=== PATIENT | male | born 1935 | race Caucasian/White ===

== ENCOUNTER 2016-08-08 21:26 | Inpatient (IN) | payer MEDICARE ==
[~2016-08-08] VITALS: Ht 170.2 cm; Wt 84.5 kg
[~2016-08-08 21:26] MED LIST: AMOXAPINE PO; BAYER CHEWABLE81 MG PO; CILOSTAZOL50 MG PO; COREG 3.1253.125 MG PO; CRESTOR20 MG PO; LASIX40 MG PO; LIPITOR40 MG PO; LISINOPRIL2.5 MG PO; MULTI-DAY VITAM1 TAB PO; NITROSTAT0.4 MG SL; PLAVIX75 MG PO; TENORMIN25 MG PO; TERAZOSIN HCL2 MG PO; ULTRAM50 MG PO; XANAX1 MG; XANAX1 MG PO
[2016-08-08 22:37] LABS: BASOPHILS 0.2 % (0.0-2.0); EOSINOPHILS 7.4 % (0-7); HEMATOCRIT 33.9 % (42.0-54.0); HEMOGLOBIN 11.4 g/dL (13.5-17.5); IMMATURE GRANULOCYTES 0.5 % (0-5); LYMPHOCYTES 25.3 % (15-50); MCH 31.6 pg (26.0-34.0); MCHC 33.6 g/dL (31.0-37.0); MCV 93.9 fL (80.0-100.0); MEAN PLATELET VOLUME 10.5 fL (7.4-10.4); MONOCYTES 9.8 % (2-11); NEUTROPHILS 56.8 % (40-80); PLATELET COUNT 106 10x3/uL (130-400); RBC 3.61 10x6/uL (4.20-6.10); RDW 15.6 % (11.5-14.5); WBC 8.5 10x3/uL (4.8-10.8)
[2016-08-08 22:48] LABS: ALBUMIN 3.3 g/dL (3.4-5.0); ALKALINE PHOSPHATASE 79 U/L (46-116); ALT (SGPT) 17 U/L (10-68); CALC OSMOLALITY 275 mosm/kg (275-300); CALCIUM 8.6 mg/dL (8.5-10.1); CARBON DIOXIDE 29.7 mmol/L (21.0-32.0); CHLORIDE - SERUM 100 mmol/L (98-107); CREATININE - SERUM 0.9 mg/dL (0.6-1.3); GLUCOSE 97 mg/dL (74-106); POTASSIUM - SERUM 4.1 mmol/L (3.5-5.1); PROTEIN - SERUM 6.2 g/dL (6.4-8.2); SODIUM 137 mmol/L (136-145); UREA NITROGEN 19 mg/dL (7-18); eGFR NON AFRICAN AMERICAN 86 mL/min (90-120)
[2016-08-08 22:57] LABS: CREATINE KINASE 58 UL (21-232); PRO BNP 1176 pg/mL (0-450)
[2016-08-09] VITALS (7 sets, daily range): BP systolic 121–145; BP diastolic 59–72; Ht 170.2 cm; Wt 84.5 kg
--- NOTE | 2016-08-09 08:07 | NUR ---
PATIENT LYING IN BED AWAKE. ALERT/ORIENT X4. DAUGHTER IN ROOM WITH PATIENT. SCDS' ON. CALL LIGHT WITHIN REACH. VOICES NO NEEDS. SALIN LOCK IN RIGHT FOREARM.
--- NOTE | 2016-08-09 10:20 | NUR ---
PRN XANAX GIVEN FOR ANXIEITY
[2016-08-09 10:39] LABS: BASOPHILS 0.1 % (0.0-2.0); EOSINOPHILS 0.1 % (0-7); HEMATOCRIT 34.3 % (42.0-54.0); HEMOGLOBIN 11.4 g/dL (13.5-17.5); IMMATURE GRANULOCYTES 0.4 % (0-5); LYMPHOCYTES 28.3 % (15-50); MCH 31.2 pg (26.0-34.0); MCHC 33.2 g/dL (31.0-37.0); MONOCYTES 4.1 % (2-11); PLATELET COUNT 115 10x3/uL (130-400); RBC 3.65 10x6/uL (4.20-6.10); RDW 15.3 % (11.5-14.5); WBC 7.5 10x3/uL (4.8-10.8)
--- NOTE | 2016-08-09 10:43 | NUR ---
DR TERESA INTO SEE PATIENT NEW ORDERS RECEIVED. TELEMRY ON.
--- NOTE | 2016-08-09 14:07 | NUR ---
PATIENT RESTING WELL. PATIENTS AT BEDSIDE. OXYGEN ON AT 2L PER N/C. CRACKLES HERD IN BILATERAL LUNGS.
--- NOTE | 2016-08-09 14:56 | NUR ---
PATIENT IN BED WITH EYES CLOSED RESTING QUIETLY. NO COMPLAINTS OR SIGNS OF DISTRESS. FAMILY AT BEDSIDE. CALL LIGHT WITHIN REACH.
--- NOTE | 2016-08-09 16:15 | NUR ---
PATIENT WORKING WITH PHYSICAL THERAPIST. PATIENT HAS A STEADY GAIT. UP WALKING AROUND IN ROOM.
[2016-08-10 05:03] VITALS: BP 118/58
[2016-08-10 05:40] LABS: BASOPHILS 0.1 % (0.0-2.0); EOSINOPHILS 0 % (0-7); HEMATOCRIT 31.8 % (42.0-54.0); HEMOGLOBIN 10.7 g/dL (13.5-17.5); IMMATURE GRANULOCYTES 0.3 % (0-5); LYMPHOCYTES 21.2 % (15-50); MCH 31.4 pg (26.0-34.0); MCHC 33.6 g/dL (31.0-37.0); MCV 93.3 fL (80.0-100.0); MEAN PLATELET VOLUME 10.6 fL (7.4-10.4); MONOCYTES 8.1 % (2-11); NEUTROPHILS 70.3 % (40-80); PLATELET COUNT 117 10x3/uL (130-400); RBC 3.41 10x6/uL (4.20-6.10); RDW 15.5 % (11.5-14.5)
[2016-08-10 05:49] LABS: WBC 11.4 10x3/uL (4.8-10.8)
[2016-08-10 05:57] LABS: ANION GAP 11.6 mmol/L (8-16); BILIRUBIN - TOTAL 0.6 mg/dL (0.2-1.3); CALCIUM 8.6 mg/dL (8.5-10.1); CREATININE - SERUM 1.1 mg/dL (0.6-1.3); POTASSIUM - SERUM 3.6 mmol/L (3.5-5.1)
--- NOTE | 2016-08-10 07:20 | NUR ---
REPORT RECEIVED FROM BIOLOGY SPECIMEN TECHNICIAN NURSE. CALL LIGHT IN REACH.
[2016-08-10 08:32] VITALS: BP 105/46
--- NOTE | 2016-08-10 09:29 | NUR ---
ASSESSMENT COMPLETED. SCDs TO BLE. AM MEDS ADMINISTERED. IN ROOM. CALL LIGHT IN REACH. WILL CONTINUE WITH PLAN OF CARE.
--- NOTE | 2016-08-10 10:42 | NUR ---
Patient Name: PEARL BLOUNT Admission Status: ER Accout number: [id number] Admission Date: 08-08-2016 : 1935 Admission Diagnosis: Attending: SANDRA Current LOS: 2 Anticipated DC Date: 08-12-2016 Planned Disposition: Home with Home Health Primary Insurance: [employer] CHOICE PPO [facility] Discharge Planning Comments: CM SPOKE WITH PATIENT AND (TANO) REGARDING D/C NEEDS AND PLANS. PATIENT STATED HE LIVES WITH HIS (TANO) AND SHE WILL DRIVE HIM HOME AT DISCHARGE. PATIENT STATED HE IS INDEPENDENT WITH HIS CARE AND HAS A CANE AT HOME IF NEEDED. PATIENTS PCP IS DR. GOLDMAN AND USES [facility] [address]. PATIENT SIGNED THE RE[facility]AH FORM FOR [facility]. CM WILL CONTINUE TO FOLLOW PATIENT WITH D/C NEEDS AND PLANS. PCP DR. SUSI CAIN [address]- [phone] TANO () [phone] BRITT (DAUGHTER) [phone] General Claims Agent: Roxanne Boucher Is the patient Alert and Oriented? Yes 0 * How many steps to enter\exit or inside your home? 0 0 * PCP DR. GOLDMAN 0 * Pharmacy [facility] [address] 0 * Preadmission Environment Home with Family 0 * ADLs Independent 0 * Equipment Cane 0 * List name and contact numbers for known caregivers / representatives who currently or will assist patient after discharge: TANO () [phone] BRITT (DAUGHTER) [phone] 0 * Community resources currently utilized None 0 * Additional services required to return to the preadmission environment? Yes 0 * Can the patient safely return to the preadmission environment? Yes 0 * Has this patient been hospitalized within the prior 30 days at any hospital? No 0 Grand Total: 0
--- NOTE | 2016-08-10 11:10 | NUR ---
MD AND NURSE PRACTITIONER IN ROOM TO SEE PATIENT.
[2016-08-10] MEDS ORDERED: FLORAJEN3 CAPS460 MG PO (11:13)
[2016-08-10] MEDS ORDERED: TESSALON PERLE100 MG PO (11:13)
[2016-08-10] MEDS ORDERED: MUCINEX DM ER1 EAC1 PO (11:13)
[2016-08-10] MEDS ORDERED: LEVAQUIN750 MG PO (11:14)
[2016-08-10 11:30] VITALS: BP 105/47
--- NOTE | 2016-08-10 12:40 | NUR ---
STUDENT NURSE REMOVED IV WITH TIP INTACT.
--- NOTE | 2016-08-10 12:50 | NUR ---
CM REASSESSMENT NOTE: PATIENT IS DISCHARGING HOME TODAY WITH [facility]. PATIENT SIGNED THE REBEKAH FORM. PATIENTS IS DRIVING HIM HOME AT DISCHARGE. PATIENT DENIED ANY OTHER NEEDS AT THIS TIME. [facility] HAS BEEN NOTIFIED OF DISCHARGE.
--- NOTE | 2016-08-10 13:02 | NUR ---
AWAKE AND ALERT. ORIENTED X3. SITTING UP IN CHIAR AT BEDSIDE. NO C/O PAIN OR DISCOMFORT. LUNGS ARE CLEAR EXCEPT IN LOWER LOBES WHICH HAVE SOME FAINT CRACKLES. REPORTS OCCASSIONAL DRY COUGH. FAMILY IN ROOM. DENIES NEEDS. WAITING ON RIDE FOR D/C HOME.
--- NOTE | 2016-08-10 13:53 | NUR ---
DC INSTRUCTIONS EXPLAINED TO PATIENT AND FAMILY PER ELLY HUBER.
--- NOTE | 2016-08-10 13:56 | NUR ---
DC'D TO VEHICLE VIA WC WITH FAMILY.
--- NOTE | 2016-08-11 13:59 | CN ---
PATIENT NAME:PEARL BLOUNT MEDICAL RECORD: [id number] : 37 LOCATION:D.MS [id number] ADMIT DATE: 08/08/16 ACCOUNT: [id number] CONSULTING PHYSICIAN: FRANCISCA TERESA MD REFERRING PHYSICIAN: SHANNA HU MD DATE OF CONSULTATION: 08/09/2016 Cardiology Consultation DIAGNOSIS: Shortness of breath, dyspnea on exertion. HISTORY OF PRESENT ILLNESS: This is a gentleman known to us with a past history of coronary artery disease, status post coronary artery bypass graft surgery. Last cardiac catheterization was December 2015 revealing wide patency of his grafts. He had no chest pain, no chest discomfort. He was taking an [id number] decongestant and feels that he had a reaction to this with worsening shortness of breath. He recently had an echo 1 week ago in our office, this revealed a normal ejection fraction of 55%, mild aortic stenosis with a valve area calculated at 1.5 cm-squared, no significant other valvular heart disease. PHYSICAL EXAMINATION: GENERAL APPEARANCE: Well-nourished, well-developed, appears stated age. Level of distress, comfortable. PSYCHIATRIC: Mental status, alert, normal affect. Orientation, oriented to time, place and person. EYES: Lids and conjunctiva, noninjected. No discharge, no pallor. ENT: Lips, teeth, gums, normal dentition. Oropharynx, no cyanosis, no pallor. NECK: Carotid arteries, bilateral normal upstroke, no bruits, no thrills. JUGULAR VEINS: No jugular venous pressure or distention. CERVICAL LYMPH NODES: Nontender, nonenlarged. THYROID: Not enlarged. Nontender. No nodules. LUNGS: Respiratory effort, unlabored. CHEST: Normal curvature. No thoracic deformity. No chest wall tenderness. Percussion, resonant. Auscultation, clear. No wheezes, no rales, no rhonchi. CARDIOVASCULAR: Precordial exam, nondisplaced. No heaves or pericardial thrills. Rate and rhythm, regular. Heart sounds, normal S1, normal S2. No S3, no gallop, no rub. Systolic murmur, not heard. Diastolic murmur, not heard. EXTREMITIES: No cyanosis, no edema. Peripheral pulses, full and equal in all extremities, except as noted. No bruits appreciated. ABDOMEN: Soft, nondistended. Normal aorta. No bruit. Nontender. No masses. Liver, nontender, no hepatomegaly. Spleen, nontender, no splenomegaly. MUSCULOSKELETAL: No joint tenderness. No joint swelling. No erythema. NEUROLOGICAL: Normal gait, normal strength, normal tone. SKIN: Warm and dry. REVIEW OF SYSTEMS: The patient reports easy bruising but reports no swollen glands. The patient reports no fever, no night sweats, no significant weight gain, no significant weight loss. No significant exercise tolerance. The patient reports no dry eyes, no irritation, no vision change. Patient reports no difficulty hearing and no ear pain. Patient reports no frequent nose bleeds or nose and sinus problems. Patient reports on arm pain on exertion. No shortness of breath while lying down. No history of heart murmur. Patient reports no cough, no wheezing or coughing up blood. Patient reports no abdominal pain, no vomiting. Normal appetite. No diarrhea and not vomiting blood. No nausea and no constipation. Patient reports no incontinence. No CONSULT REPORT [id number] PEARL BLOUNT difficulty urinating. No hematuria. No increased frequency. Patient reports no muscle aches. No weakness, no arthralgias, no back pain. No swelling of the extremities. Patient reports no abnormal mole, no jaundice, no rashes. Reports no loss of consciousness. No weakness and no numbness. No seizures, dizziness, or headaches. The patient reports no depression, no sleep disturbance, feeling safe in a relationship and no alcohol abuse. Patient reports on fatigue. Reports no runny nose or sinus pressure. No itching, no hives, and no frequent sneezing. OVERALL IMPRESSION: This is not congestive heart failure with a normal ejection fraction, mild valvular heart disease and no anginal symptomatology with a normal troponin and no EKG changes. At this time, no other cardiac workup or treatment is necessary. TRANSINT:[id number] Voice Confirmation ID: [id number] DOCUMENT ID: [id number] FRANCISCA TERESA MD at 1359 CC: [id number] DICTATION DATE: 08/09/1652 LITIGATION LEGAL SECRETARY: 08/09/16 0911 DIS IN 08/10/16 [place] [address]
== END 2016-08-10 13:56 | disposition home health service (06) | DRG 291 ==
LOC: D.ER 21:26 → D.MS 23:52
PROVIDERS: Emergency Medicine Emergency Medical Services; ADMIT Emergency Medicine
DX: I13.0 Hypertensive heart and chronic kidney disease with heart failure and stage 1 through stage 4 chronic kidney disease, or unspecified chronic kidney disease (principal); J18.9 Pneumonia, unspecified organism; I50.43 Acute on chronic combined systolic (congestive) and diastolic (congestive) heart failure; N18.2 Chronic kidney disease, stage 2 (mild); I25.10 Atherosclerotic heart disease of native coronary artery without angina pectoris; F32.9 Major depressive disorder, single episode, unspecified; I73.9 Peripheral vascular disease, unspecified; Z95.0 Presence of cardiac pacemaker

== ENCOUNTER → 2016-10-10 12:31 | Outpatient (CLI) | payer MEDICARE ==
[~2016-10-10 12:31] MED LIST changes: +BUMEX 1 MG TAB1 MG IV; +BUMEX 1 MG TAB1 MG PO; +CETIRIZINE HCL5 M1 PO; +COZAAR25 MG PO; +FLORAJEN3 CAPS460 MG PO; +K-DUR20 MEQ PO; +LEVAQUIN750 MG PO; +MUCINEX DM ER1 EAC1 PO; +NORVASC10 MG PO; +ROBAXIN500 MG PO; +TESSALON PERLE100 MG PO
== END | disposition home or self-care (01) ==
LOC: D.US 12:31
DX: I73.9 Peripheral vascular disease, unspecified (principal)

== ENCOUNTER 2016-11-27 08:23 | Inpatient (IN) | payer MEDICARE ==
[~2016-11-27] VITALS: Ht 170.2 cm; Wt 89.6 kg
[~2016-11-27 08:23] MED LIST changes: -BUMEX 1 MG TAB1 MG IV; -BUMEX 1 MG TAB1 MG PO; -CETIRIZINE HCL5 M1 PO; -COZAAR25 MG PO; -K-DUR20 MEQ PO; -NORVASC10 MG PO; -ROBAXIN500 MG PO
[2016-11-27 09:07] LABS: BASOPHILS 0.3 % (0-2); EOSINOPHILS 7.7 % (0-7); HEMATOCRIT 32.6 % (42.0-54.0); HEMOGLOBIN 11.1 g/dL (13.5-17.5); IMMATURE GRANULOCYTES 0.3 % (0-5); LYMPHOCYTES 38.2 % (15-50); MCH 31.4 pg (26.0-34.0); MCV 92.4 fL (80.0-100.0); MEAN PLATELET VOLUME 10.7 fL (7.4-10.4); MONOCYTES 10.8 % (2-11); NEUTROPHILS 42.7 % (40-80); PLATELET COUNT 139 10x3/uL (130-400); RBC 3.53 10x6/uL (4.20-6.10); RDW 15.7 % (11.5-14.5); WBC 11.4 10x3/uL (4.8-10.8)
[2016-11-27 09:18] LABS: ALBUMIN 3.6 g/dL (3.4-5.0); ALKALINE PHOSPHATASE 68 U/L (46-116); ALT (SGPT) 19 U/L (10-68); BILIRUBIN - TOTAL 1.02 mg/dL (0.2-1.3); CALC OSMOLALITY 274 mosm/kg (275-300); CALCIUM 8.6 mg/dL (8.5-10.1); CARBON DIOXIDE 26.8 mmol/L (21.0-32.0); CHLORIDE - SERUM 96 mmol/L (98-107); CREATININE - SERUM 1.2 mg/dL (0.6-1.3); POTASSIUM - SERUM 4.2 mmol/L (3.5-5.1); PROTEIN - SERUM 6.1 g/dL (6.4-8.2); SODIUM 132 mmol/L (136-145); UREA NITROGEN 38 mg/dL (7-18); eGFR NON AFRICAN AMERICAN 62 mL/min (90-120)
[2016-11-27 09:22] LABS: GLUCOSE 120 mg/dL (74-106)
[2016-11-27 09:29] LABS: CKMB 1.9 U/L (0.0-3.6); PRO BNP 2027 pg/mL (0-450)
[2016-11-27 09:30] LABS: TROPONIN-I < 0.017 ng/mL (0.000-0.060)
[2016-11-27 12:14] VITALS: BP 129/59; BMI 30.4
[2016-11-27 13:20] VITALS: BP 124/59
[2016-11-27 17:16] VITALS: BP 120/54
[2016-11-27 20:34] VITALS: BP 97/52
[2016-11-27 23:34] VITALS: BP 120/54
[2016-11-28 04:24] VITALS: BP 114/49
[2016-11-28 06:18] LABS: BASOPHILS 0.4 % (0-2); EOSINOPHILS 5.8 % (0-7); HEMATOCRIT 34.8 % (42.0-54.0); HEMOGLOBIN 11.8 g/dL (13.5-17.5); IMMATURE GRANULOCYTES 0.6 % (0-5); LYMPHOCYTES 40.7 % (15-50); MCH 31.8 pg (26.0-34.0); MCHC 33.9 g/dL (31.0-37.0); MCV 93.8 fL (80.0-100.0); MEAN PLATELET VOLUME 11.2 fL (7.4-10.4); MONOCYTES 11.9 % (2-11); NEUTROPHILS 40.6 % (40-80); PLATELET COUNT 165 10x3/uL (130-400); RBC 3.71 10x6/uL (4.20-6.10); WBC 13.4 10x3/uL (4.8-10.8)
[2016-11-28 06:53] LABS: ANION GAP 11.6 mmol/L (8-16); CARBON DIOXIDE 31.4 mmol/L (21.0-32.0); CREATININE - SERUM 1.2 mg/dL (0.6-1.3)
[2016-11-28 08:13] VITALS: BP 123/58
[2016-11-28 08:58] VITALS: Ht 170.2 cm; Wt 89.6 kg
[2016-11-28] MEDS ORDERED: COZAAR25 MG PO ×2 (12:02→12:05)
[2016-11-28 13:24] VITALS: BP 113/49
--- NOTE | 2016-11-29 13:39 | EC ---
PATIENT:PEARL BLOUNT DATE OF SERVICE: 11/27/16 SEX: M MEDICAL RECORD: [id number] DATE OF : [birth year] LOCATION:D.M2 D.212 AGE OF PATIENT: 81 ADMISSION DATE: 11/27/16 REFERRING PHYSICIAN: INTERPRETING PHYSICIAN: BRAVO FAM MD ECHOCARDIOGRAM REPORT ECHO CHARGES 4 ECHO COMPLETE CLINICAL DIAGNOSIS: CHF ECHOCARDIOGRAPHIC MEASUREMENTS (adult normal given) AC root (d.<3.7cm) 3.6 LV Septum d (<1.2 cm> 1.2 Valve Excursion 1.9 LV Septum (systole) 2.0 Left Atria (s.<4.0cm> 5.1 LVPW d(<1.2cm) 1.7 RV (d.<2.3cm) 2.9 LVPW (sytole) 2.2 LV diastole(<5.6CM) 6.5 MV E-F(>70mm/sec) LV systole 4.9 LVOT Diameter 1.8 MV exc.(>10mm) Est.ejection fraction (50-75%) Pericardial Effusion N DOPPLER: LVIT A E 222.0 LA RVSP 77.0 LVOT 133 AOP1/2T Asc. Ao 236 RVOT 84.0 RA PA 125 AV Gradient Peak 22.3 AV Mean 12.0 AV Area 1.4 MV Gradient Peak 21.0 MV Mean 4.8 MV Area 1.1 COMMENTS: Flag Maker: [facility] Coordinator:Nicol Brownlee TAPE# PACS DATE OF SERVICE: 11/27/2016 Adequate 2D echo, color flow and spectral Doppler, and M-mode. Borderline LVH. LV internal dimensions are normal. Wall motion is normal. EF is greater than or equal to 55%. Aortic valve sclerosis without stenosis by Doppler interrogation. The left atrium is dilated at 5.1 cm. Mitral valve is thickened, mitral annular calcification, moderate MR. Right-sided chamber is grossly normal, moderate TR. TRANSINT:[id number] Voice Confirmation ID: [id number] DOCUMENT ID: [id number] ECHOCARDIOGRAM REPORT [id number] PEARL BLOUNT 11/29/2016 Edited to correct date of service, dmm. BRAVO FAM MD at 1339 CC: [id number] DICTATION DATE: 11/28/1638 PARAMEDIC RN: 11/28/16 1105 DIS IN 11/28/16 [facility] [address] [facility]
--- NOTE | 2016-11-29 13:39 | CN ---
PATIENT NAME:PEARL BLOUNT MEDICAL RECORD: [id number] : 37 LOCATION:. D.2126 ADMIT DATE: 11/27/16 ACCOUNT: [id number] CONSULTING PHYSICIAN: BRAVO FAM MD REFERRING PHYSICIAN: CHRISTIANO MONDRAGON MD DATE OF CONSULTATION: 11/28/2016 HISTORY OF PRESENT ILLNESS: An 81-year-old gentleman with a known history of coronary artery disease, status post coronary artery bypass grafting. He has a history of preserved LV systolic function. Recently had a fem-pop, admitted with volume overload, reports he was not responding to his usual dose of diuretic. LV function is normal, was mildly hypoproteinemic. We are asked to see him concerning his cardiovascular status. PAST MEDICAL HISTORY: Includes: 1. History of hypertension. 2. Peripheral vascular disease. 3. Coronary artery disease as described above. 4. Dyslipidemia. MEDICATIONS: Typically include Plavix 75 daily, Hytrin 2 mg p.o. q.h.s., Lipitor 40 daily, Coreg 3.125 daily, lisinopril 2.5 daily, aspirin 81 daily, Lasix 40 p.r.n. SOCIAL HISTORY: , lives here in [place], does try to exercise, nonsmoker. REVIEW OF SYSTEMS: The patient reports easy bruising but reports no swollen glands. The patient reports no fever, no night sweats, no significant weight gain, no significant weight loss. No significant exercise tolerance. The patient reports no dry eyes, no irritation, no vision change. Patient reports no difficulty hearing and no ear pain. Patient reports no frequent nose bleeds or nose and sinus problems. Patient reports on arm pain on exertion. No shortness of breath while lying down. No history of heart murmur. Patient reports no cough, no wheezing or coughing up blood. Patient reports no abdominal pain, no vomiting. Normal appetite. No diarrhea and not vomiting blood. No nausea and no constipation. Patient reports no incontinence. No difficulty urinating. No hematuria. No increased frequency. Patient reports no muscle aches. No weakness, no arthralgias, no back pain. No swelling of the extremities. Patient reports no abnormal mole, no jaundice, no rashes. Reports no loss of consciousness. No weakness and no numbness. No seizures, dizziness, or headaches. The patient reports no depression, no sleep disturbance, feeling safe in a relationship and no alcohol abuse. Patient reports on fatigue. Reports no runny nose or sinus pressure. No itching, no hives, and no frequent sneezing. PHYSICAL EXAMINATION: GENERAL: Pleasant gentleman, in no acute distress, comfortable, appears stated age. VITAL SIGNS: BP 123/58, pulse 69 and regular. HEENT: Normocephalic, atraumatic. NECK: No bruits noted. HEART: Regular, II/ systolic ejection murmur. LUNGS: De La Cruz clear. ABDOMEN: Soft, nontender. CONSULT REPORT [id number] PEARL BLOUNT EXTREMITIES: Pulses 1+. There is no edema. NEUROLOGIC: Grossly intact. IMPRESSION: Volume overload secondary to surgery, responding excellent to Bumex. LV function remains normal. I agree with current management. TRANSINT:[id number] Voice Confirmation ID: [id number] DOCUMENT ID: [id number] BRAVO FAM MD at 1339 CC: [id number] DICTATION DATE: 11/28/16 1017 OIL WELL CABLE TOOL OPERATOR: 11/28/16 1150 DIS IN 11/28/16 [facility] [address] [place] [address]
== END 2016-11-28 14:20 | disposition home or self-care (01) | DRG 292 ==
LOC: D.ER 08:23 → D.M2 10:09
PROVIDERS: Emergency Medicine; ADMIT Family Medicine
DX: I11.0 Hypertensive heart disease with heart failure (principal); C95.90 Leukemia, unspecified not having achieved remission; I50.9 Heart failure, unspecified; I25.10 Atherosclerotic heart disease of native coronary artery without angina pectoris; I73.9 Peripheral vascular disease, unspecified; E78.5 Hyperlipidemia, unspecified; F41.9 Anxiety disorder, unspecified; F32.9 Major depressive disorder, single episode, unspecified; D63.8 Anemia in other chronic diseases classified elsewhere; Z95.1 Presence of aortocoronary bypass graft; Z95.0 Presence of cardiac pacemaker

== ENCOUNTER → 2016-12-01 14:17 | Outpatient (CLI) | payer MEDICARE ==
[2016-11-28 08:58] VITALS: BMI 30.9
[~2016-12-01 14:17] MED LIST changes: +BUMEX 1 MG TAB1 MG IV; +CETIRIZINE HCL5 M1 PO; +COZAAR25 MG PO; +K-DUR20 MEQ PO; +NORVASC10 MG PO; +ROBAXIN500 MG PO
== END | disposition home or self-care (01) ==
LOC: D.US 14:17
DX: I50.9 Heart failure, unspecified (principal); R33.9 Retention of urine, unspecified

== ENCOUNTER 2016-12-02 01:53 | Inpatient (IN) | payer MEDICARE ==
[~2016-12-02] VITALS: Ht 170.2 cm; Wt 85.6 kg
[~2016-12-02 01:53] MED LIST changes: -BUMEX 1 MG TAB1 MG IV; -CETIRIZINE HCL5 M1 PO; -K-DUR20 MEQ PO; -NORVASC10 MG PO; -ROBAXIN500 MG PO
[2016-12-02 02:29] LABS: BASOPHILS 0.4 % (0-2); EOSINOPHILS 8.5 % (0-7); HEMATOCRIT 32.6 % (42.0-54.0); HEMOGLOBIN 10.8 g/dL (13.5-17.5); IMMATURE GRANULOCYTES 0.3 % (0-5); LYMPHOCYTES 35.6 % (15-50); MCH 30.9 pg (26.0-34.0); MCHC 33.1 g/dL (31.0-37.0); MCV 93.1 fL (80.0-100.0); MEAN PLATELET VOLUME 10.4 fL (7.4-10.4); MONOCYTES 11.5 % (2-11); NEUTROPHILS 43.7 % (40-80); RDW 16.3 % (11.5-14.5); WBC 10.5 10x3/uL (4.8-10.8)
[2016-12-02 02:30] LABS: PLATELET COUNT 126 10x3/uL (130-400)
[2016-12-02 02:41] LABS: ALBUMIN 3.4 g/dL (3.4-5.0); ANION GAP 9.6 mmol/L (8-16); BILIRUBIN - TOTAL 1.03 mg/dL (0.2-1.3); CALCIUM 8.6 mg/dL (8.5-10.1); CARBON DIOXIDE 31.2 mmol/L (21.0-32.0); CREATININE - SERUM 1.1 mg/dL (0.6-1.3); POTASSIUM - SERUM 3.8 mmol/L (3.5-5.1); PROTEIN - SERUM 5.9 g/dL (6.4-8.2)
[2016-12-02 02:49] LABS: TROPONIN-I 0.02 ng/mL (0.000-0.060)
[2016-12-02] MEDS ORDERED: K-DUR20 MEQ PO (04:25)
[2016-12-02] MEDS ORDERED: BUMEX 1 MG TAB1 MG IV (04:28)
[2016-12-02] MEDS ORDERED: ULTRAM50 MG PO (04:30)
[2016-12-02] MEDS ORDERED: ROBAXIN500 MG PO (04:30)
--- NOTE | 2016-12-02 04:30 | NUR ---
REPORT CALL FROM DONNA IN ER, IV-RAC-SL, PT HAS PACEMAKER TO L.CHEST, [id number], VITAL ARE STABLE, 02-2L, 80MG LASIX GIVEN IN ER, .5 DIDLUID GIVEN IN ER X2, EDEMA TO BILATERAL LOWER LEGS, FAMILY AT BEDSIDE, BED IS LOW, SRX 2, CALL LIGHT IN REACH, URINAL GIVEN, PLACE ON FALL PERCAUTION, WILL CONTINUE TO MONITOR
[2016-12-02] MEDS ORDERED: CETIRIZINE HCL5 M1 PO (04:31)
[2016-12-02] MEDS ORDERED: NORVASC10 MG PO (04:31)
[2016-12-02] MEDS ORDERED: TERAZOSIN HCL2 MG PO (04:33)
[2016-12-02 05:40] VITALS: BP 117/52; BMI 31.4
--- NOTE | 2016-12-02 07:27 | NUR ---
AM ROUNDS - PT APPEARS TO BE SLEEPING WITH EQUAL AND NON LABORED BREATHS. AND DAUGHTER AT BEDSIDE. MONITOR SHOWS PACE, HR 60. O2 AT 2L VIA NC. RIGHT AC IV, SL. WILL CONTINUE TO MONITOR
[2016-12-02 08:04] VITALS: BP 100/43
--- NOTE | 2016-12-02 11:48 | NUR ---
PT UP IN CHAIR. WILL CONTINUE TO MONITOR
[2016-12-02 12:00] VITALS: BP 116/42
--- NOTE | 2016-12-02 12:44 | NUR ---
PT SITTING UP IN THE CHAIR WITH FAMILY MEMBERS AT BEDSIDE. LUNCH TRAYS ARE BEING PASSED. AWAITING ON HIS LUNCH. NO NEEDS AT THIS TIME. WILL CONTINUE TO MONITOR
[2016-12-02 14:14] VITALS: Ht 170.2 cm; Wt 85.6 kg
[2016-12-02 16:00] VITALS: BP 140/58
--- NOTE | 2016-12-02 17:07 | NUR ---
Patient Name: MARCELLO BLOUNT Admission Status: ER Accout number: [id number] Admission Date: 12-02-2016 : 1935 Admission Diagnosis: Attending: BRITTANY Current LOS: 1 Anticipated DC Date: Planned Disposition: Home with Home Health Primary Insurance: HU[employer] CHOICE PPO [facility] PLANNED EXTERNAL PROVIDER: [facility] Discharge Planning Comments: * Is the patient Alert and Oriented? Yes 0 * How many steps to enter\exit or inside your home? NONE 0 * PCP DR. GOLDMAN MAY BE CHANGING TO DR. MONDRAGON 0 * Pharmacy [facility] [address] 0 * Preadmission Environment Home with Family 0 * ADLs Independent 0 * Equipment Cane 0 * Other Equipment NO MEDICAL EQUIPMENT PROVIDER PREFERENCE 0 * List name and contact numbers for known caregivers / representatives who currently or will assist patient after discharge: TANO BLOUNT, SPOUSE, BRITT MAGAÑA, DTR, 0 * Community resources currently utilized Home Health 0 * Please name any agencies selected above. [facility] 0 * Additional services required to return to the preadmission environment? No 0 * Can the patient safely return to the preadmission environment? Yes 0 * Has this patient been hospitalized within the prior 30 days at any hospital? Yes 0 CM MET WITH PT IN ROOM TO DISCUSS DISCHARGE PLANNING AND NEEDS. PT REPORTS LIVING AT HOME INDEPENDENTLY AT [facility] WITH HIS SPOUSE. PT HAS A CANE WITH NO MEDICAL EQUIPMENT PROVIDER [facility]. CM DISCUSSED AVAILABILITY OF HOME HEALTH, REHAB SERVICES AND MEDICAL EQUIPMENT. PT DENIES DISCHARGE NEEDS EXCEPT FOR RESUMPTION OF [facility] AT DISCHARGE. FAMILY OR SPOUSE WILL PICK HIM UP FOR DISCHARGE HOME. CM SPOKE TO SHIVANI OF [facility] WHO VERIFIED PT IS ON HOLD FOR HOME HEALTH WHILE IN THE HOSPITAL TO RESUME AT DISCHARGE. FOR DISCHARGE HOME, NOTIFY [facility] AT [phone]. FAX DISCHARGE INFORMATION [phone]. Wind Farm Operations Manager: Marcello Montgomery
--- NOTE | 2016-12-02 19:30 | NUR ---
RECEIVED REPORT, PT SITTING IN CHAIR, HELP TO RAISE FEET AND PLACE PILLOW UNDER R. HIP, 02-2L, IV-RAC-SL, [id number], L.CHEST-PACEMAKER, BILATERAL BELOW KNEES- EDEMA, CALL LIGHT IN REACH, DAUGHTER AT BEDSIDE, WILL CONTINUE PLAN OF CARE
--- NOTE | 2016-12-02 20:29 | NUR ---
GAVE NIGHT TIME MEDS, PT HAS OWN 100MG ASENDIN TABLET, DAUGHTER WILL GIVE WHEN SHE GETS BACK,
[2016-12-02 20:56] VITALS: BP 139/52
--- NOTE | 2016-12-02 21:38 | NUR ---
PT ASK FOR NORCO, GAVE ORDER, DAUGHTER WAS BACK, ASK IF SHE GAVE 100MG ASENDIN, SHE SAID YES
[2016-12-03 00:42] VITALS: BP 97/40
--- NOTE | 2016-12-03 02:25 | NUR ---
PT RESTING WELL WITHOUT C/O OR DISTRESS NOTED. NO NEEDS VOICED. CALL LIGHTS WITHIN REACH. WILL CONT TO MONITOR.
--- NOTE | 2016-12-03 03:01 | NUR ---
ASSESSMENT COMPLETE. SEE FLOWSHEET, SLEEPING ON L.SIDE, BED IS LOW, SRX2, CALL LIGHT IN REACH, DAUGHTER AT BEDSIDE, WILL CONTINUE TO MONITOR
--- NOTE | 2016-12-03 05:38 | NUR ---
HELD LASIX AND BUMEX-BLOOD PRESSURE 105/42
[2016-12-03 05:39] LABS: BASOPHILS 0.2 % (0-2); HEMATOCRIT 30.7 % (42.0-54.0); IMMATURE GRANULOCYTES 0.2 % (0-5); LYMPHOCYTES 44.1 % (15-50); MCH 31.1 pg (26.0-34.0); MCHC 32.6 g/dL (31.0-37.0); MEAN PLATELET VOLUME 10.3 fL (7.4-10.4); MONOCYTES 10.4 % (2-11); NEUTROPHILS 35.1 % (40-80); PLATELET COUNT 118 10x3/uL (130-400); RBC 3.22 10x6/uL (4.20-6.10); RDW 16.2 % (11.5-14.5); WBC 8.7 10x3/uL (4.8-10.8)
[2016-12-03 05:41] LABS: MCV 95.3 fL (80.0-100.0)
[2016-12-03 06:00] LABS: ALBUMIN 3.2 g/dL (3.4-5.0); BILIRUBIN - TOTAL 0.83 mg/dL (0.2-1.3); CALCIUM 8.4 mg/dL (8.5-10.1); CARBON DIOXIDE 33.9 mmol/L (21.0-32.0); CREATININE - SERUM 1.2 mg/dL (0.6-1.3); POTASSIUM - SERUM 3.9 mmol/L (3.5-5.1); PROTEIN - SERUM 5.6 g/dL (6.4-8.2)
--- NOTE | 2016-12-03 06:55 | NUR ---
0654-AM ROUNDING DONE WITH PATIENT WATCHING TV, GLASSES ON. RIGHT AC SEEN WITH SALINE LOCK, ORANGE CAP IN PLACE. BILATERAL NON SKID SOCKS ON, BILATERAL LOWER SHINS ARE SLIGHTLY RED, 2-3+ EDEMA SEEN TO SHINS. DAUGHTER AT BEDSIDE. CALL LIGHT IN USE. ON HEART MONITOR SHOWING PACED, HR 76. WILL CPOC.
[2016-12-03 08:00] VITALS: BP 145/73
[2016-12-03 12:00] VITALS: BP 137/51
--- NOTE | 2016-12-03 12:11 | NUR ---
STILL SITTING UP IN CHAIR EATING LUNCH, AT BEDSIDE. DENIES NEEDS.
--- NOTE | 2016-12-03 12:27 | NUR ---
INFORMED PATIENT AND THAT WE ARE STOPPING THE LASIX PER ORDERS.
--- NOTE | 2016-12-03 15:16 | NUR ---
PATIENT IS WANTING SOMETHING FOR PAIN ON HIS LEGS. NOTHING IS ON THE EMAR. CALL PLACED TO CATRINA MACKEY TO SEE ABOUT HIS HOME MEDICATION OF ULTRAM. AWAITING CALL BACK.
--- NOTE | 2016-12-03 15:53 | NUR ---
NO CALL BACK FROM CATRINA MACKEY, CALL PLACED TO DR JIMENEZ.
--- NOTE | 2016-12-03 16:00 | NUR ---
RECEIVED CALL BACK FROM DR JIMENEZ. NEW ORDERS RECEIVED.
[2016-12-03 16:24] VITALS: BP 117/74
[2016-12-03 20:00] VITALS: BP 136/63
--- NOTE | 2016-12-03 20:10 | NUR ---
PT SITTING UP IN CHAIR WITH DAUGHTER AT BEDSIDE. HE IS ALERT/ORIENTED AND WATCHING TV. APPROPRIATE IN CONVERSATION. DENIES PAIN OR DISCOMFORT. STATES HE IS ACTUALLY FEELING BETTER. O2 @ 2L/NC WITH NONLABORED RESPIRATIONS.
--- NOTE | 2016-12-03 20:25 | NUR ---
REVIEWED PLAN OF CARE WITH PATIENT AND HE IS REQUESTING THAT HIS BUMEX BE RETIMED SO THAT HE IS NOT UP ALL NIGHT GOING TO THE BATHROOM. WILL DO THIS . PT ALSO WANTING PAIN AND ANXIETY MEDS GIVEN WHEN HE GETS HIS BEDTIME MEDS. DAUGHTER AT BEDSIDE. NO OTHER NEEDS. WILL MONITOR.
--- NOTE | 2016-12-03 22:46 | NUR ---
ALL HS MEDS GIVEN AND PT NOW GETTING INTO BED TO SLEEP. DAUGHTER STAYING AT BEDSIDE. CPOC.
[2016-12-04] VITALS: BP 101/42
--- NOTE | 2016-12-04 06:01 | NUR ---
AM MEDS GIVEN, WITH NEWLY TIMED BUMEX. DAUGHTER IN ROOM, ASSISTING PT WITH DRINKING COFFEE AND GETTING UP TO CHAIR.
[2016-12-04 06:11] LABS: BASOPHILS 0.2 % (0-2); EOSINOPHILS 11.2 % (0-7); HEMATOCRIT 30.7 % (42.0-54.0); HEMOGLOBIN 10.1 g/dL (13.5-17.5); IMMATURE GRANULOCYTES 0.2 % (0-5); LYMPHOCYTES 35.2 % (15-50); MCH 31.6 pg (26.0-34.0); MCHC 32.9 g/dL (31.0-37.0); MCV 95.9 fL (80.0-100.0); MONOCYTES 11.6 % (2-11); NEUTROPHILS 41.6 % (40-80); PLATELET COUNT 104 10x3/uL (130-400); RDW 16.2 % (11.5-14.5); WBC 8.4 10x3/uL (4.8-10.8)
[2016-12-04 06:47] LABS: ALBUMIN 3.2 g/dL (3.4-5.0); ALKALINE PHOSPHATASE 64 U/L (46-116); ALT (SGPT) 24 U/L (10-68); CALC OSMOLALITY 278 mosm/kg (275-300); CALCIUM 8.7 mg/dL (8.5-10.1); CARBON DIOXIDE 33.3 mmol/L (21.0-32.0); CHLORIDE - SERUM 100 mmol/L (98-107); GLUCOSE 105 mg/dL (74-106); POTASSIUM - SERUM 4.3 mmol/L (3.5-5.1); PROTEIN - SERUM 5.7 g/dL (6.4-8.2); SODIUM 137 mmol/L (136-145); UREA NITROGEN 27 mg/dL (7-18); eGFR NON AFRICAN AMERICAN 76 mL/min (90-120)
--- NOTE | 2016-12-04 07:36 | NUR ---
0715-AM ROUNDING DONE WITH PATIENT IN RESTROOM WASHING UP. DAUGHTER AT BEDSIDE CHANGING BED LINENS. MARISSA ([employer] TECH) IN WITH PATIENT. ON EP, LAB VALUE OF K+ IS NORMAL. ON HEART MONITOR SHOWING PACED, HR 90. PATIENT DENIES NEEDS THROUGH DOOR.
[2016-12-04 08:46] VITALS: BP 140/58
[2016-12-04 12:12] VITALS: BP 134/62
[2016-12-04 16:23] VITALS: BP 154/65
--- NOTE | 2016-12-04 18:14 | NUR ---
PATIENT IS STILL IN CHAIR AT THIS TIME, RESTING WITH EYES CLOSED. RESP ARE EVEN AND NON LABORED.
--- NOTE | 2016-12-04 19:34 | NUR ---
ASSESSMENT DEIRDRE A&O. 02 AT 2 LITER VIA NC, RESPERATIONS EVEN. PT SITTING UP IN CHAIR AT BED SIDE. IV TO RIGHT AC SL, SITE CLEAN AND DRY. FAMILY AT BED SIDE VISITING. PT DENIES PAIN OR NEEDS, BED LOW, CL IN REACH.
[2016-12-04 20:00] VITALS: BP 133/76
--- NOTE | 2016-12-04 21:12 | NUR ---
HS MEDS GIVEN WITH FRESHI ICE WATER, NORCO 1 TAB GIVEN FOR C/O PAIN TO LEGS, RATES PAIN AT A 7 ON PAIN SCALE. WILL CONT TO MONITOR.
[2016-12-05] VITALS: BP 134/53
--- NOTE | 2016-12-05 02:53 | NUR ---
RESTING WITH EYES CLOSED, RESPERATIONS EVEN, NO S/S DISTRESS NOTED.
[2016-12-05 04:00] VITALS: BP 126/53
[2016-12-05 05:55] LABS: BASOPHILS 0.3 % (0-2); EOSINOPHILS 9.5 % (0-7); HEMATOCRIT 32.2 % (42.0-54.0); HEMOGLOBIN 10.5 g/dL (13.5-17.5); IMMATURE GRANULOCYTES 0.3 % (0-5); LYMPHOCYTES 37.3 % (15-50); MCH 31.3 pg (26.0-34.0); MCHC 32.6 g/dL (31.0-37.0); MCV 96.1 fL (80.0-100.0); MEAN PLATELET VOLUME 10.4 fL (7.4-10.4); MONOCYTES 11.5 % (2-11); NEUTROPHILS 41.1 % (40-80); PLATELET COUNT 113 10x3/uL (130-400); RBC 3.35 10x6/uL (4.20-6.10); RDW 15.9 % (11.5-14.5)
[2016-12-05 06:14] LABS: ALBUMIN 3.3 g/dL (3.4-5.0); ALKALINE PHOSPHATASE 64 U/L (46-116); ALT (SGPT) 22 U/L (10-68); CALC OSMOLALITY 280 mosm/kg (275-300); CALCIUM 8.7 mg/dL (8.5-10.1); CARBON DIOXIDE 35.1 mmol/L (21.0-32.0); CHLORIDE - SERUM 100 mmol/L (98-107); GLUCOSE 117 mg/dL (74-106); POTASSIUM - SERUM 4.2 mmol/L (3.5-5.1); PROTEIN - SERUM 5.8 g/dL (6.4-8.2); SODIUM 138 mmol/L (136-145); UREA NITROGEN 24 mg/dL (7-18); eGFR NON AFRICAN AMERICAN 76 mL/min (90-120)
[2016-12-05 08:00] VITALS: BP 102/43
--- NOTE | 2016-12-05 08:11 | NUR ---
DAUGHTER AT SIDE. ASSESSMENT DONE. DESTIN NEEDS
--- NOTE | 2016-12-05 08:51 | NUR ---
UP IN CHAIR WITH CALL LIGHT IN REACH. RESP UL ON . FAMILY MEMBER AT BS. WILL CONT. PLAN OF CARE.
[2016-12-05 12:17] VITALS: BP 108/52
[2016-12-05 16:28] VITALS: BP 115/53
--- NOTE | 2016-12-05 17:55 | NUR ---
WITHOUT CHANGES OR DISTRESS NOTED AT THIS TIME. DENIES NEEDS
--- NOTE | 2016-12-05 19:34 | NUR ---
ASSESSMENT COMPLETE, A&O. SITTING UP IN CHAIR AT BED SIDE. RESPERATIONS EVEN ON 02 AT 2 LITER VIA NC. IV TO RIGHT AC SL, SITE CLEAN AND DRY. PT DENIES PAIN OR NEEDS, CL IN REACH, WILL CONT TO MONITOR.
--- NOTE | 2016-12-05 20:45 | NUR ---
HS MEDS GIVEN, ULTRAM 1 TAB GIVEN FOR C/O DISCOMFORT. NO OTHER NEEDS AT THIS TIME.
[2016-12-05 21:46] VITALS: BP 135/59
[2016-12-06 01:37] VITALS: BP 121/52
[2016-12-06 05:32] VITALS: BP 120/56; BP 120/74
[2016-12-06 05:48] LABS: BASOPHILS 0.3 % (0-2); EOSINOPHILS 10.2 % (0-7); HEMATOCRIT 30.7 % (42.0-54.0); HEMOGLOBIN 9.8 g/dL (13.5-17.5); IMMATURE GRANULOCYTES 0.3 % (0-5); LYMPHOCYTES 36.8 % (15-50); MCH 30.6 pg (26.0-34.0); MCHC 31.9 g/dL (31.0-37.0); MCV 95.9 fL (80.0-100.0); MEAN PLATELET VOLUME 10.1 fL (7.4-10.4); MONOCYTES 11.7 % (2-11); NEUTROPHILS 40.7 % (40-80); PLATELET COUNT 104 10x3/uL (130-400); RDW 15.8 % (11.5-14.5); WBC 7.3 10x3/uL (4.8-10.8)
[2016-12-06 06:06] LABS: ALBUMIN 3.1 g/dL (3.4-5.0); ALKALINE PHOSPHATASE 56 U/L (46-116); ALT (SGPT) 20 U/L (10-68); BILIRUBIN - TOTAL 0.75 mg/dL (0.2-1.3); CALC OSMOLALITY 282 mosm/kg (275-300); CALCIUM 8.8 mg/dL (8.5-10.1); CARBON DIOXIDE 35.7 mmol/L (21.0-32.0); CHLORIDE - SERUM 101 mmol/L (98-107); GLUCOSE 107 mg/dL (74-106); POTASSIUM - SERUM 4.3 mmol/L (3.5-5.1); PROTEIN - SERUM 5.8 g/dL (6.4-8.2); SODIUM 139 mmol/L (136-145); UREA NITROGEN 26 mg/dL (7-18); eGFR NON AFRICAN AMERICAN 76 mL/min (90-120)
--- NOTE | 2016-12-06 07:00 | NUR ---
RECEIVED REPORT. ASSUMED CARE OF PATIENT. CALL LIGHT WITHINR EACH. PATIENT SITTING TO CHAIR AT BEDSIDE. EDEMA TO BILATERAL LOWER EXTREMITIES, LEFT GREATER THAN RIGHT. DENIES NEEDS. PATIENT WANTING TO KNOW WHEN HE WILL GET TO GO HOME. PATIENT STATES HE HAS BEEN HERE FOR A COUPLE OF DAYS AND NOTHING NEW IS BEING DONE. INFORMED PATIENT THAT THE PHYSICIANS ARE NOT HERE YET FOR MORNING ROUNDS BUT WOULD ASK THEM ABOUT FUTURE DISCHARGE PLANNING. NO DISTRESS. URINALS EMPTYED AT THIS TIME.
[2016-12-06 08:15] VITALS: BP 124/57
--- NOTE | 2016-12-06 10:00 | NUR ---
PATIENT UP TO CHAIR. CONTINUES SITTING AT BEDSIDE. CALL LIGHT WITHIN REACH. DENIES NEEDS. NO DISTRESS.
[2016-12-06 12:04] VITALS: BP 126/60
--- NOTE | 2016-12-06 13:57 | NUR ---
Nutrition follow-up: Diet: No added salt PO intake 100% of some meals Labs reviewed Wt: 204# -> wt up 4# from admit wt of 200#; states from fluid retention No BM charted Will continue to provide food choices with selective menus and honor food preferences within diet restrictions. RDN following.
--- NOTE | 2016-12-06 15:00 | NUR ---
PATIENT SITTING IN CHAIR AT BEDSIDE. NO DISTRESS. CALL LIGHT WITHIN REACH. DENIES NEEDS.
[2016-12-06 16:12] VITALS: BP 114/51
--- NOTE | 2016-12-06 18:45 | NUR ---
HERE AND GAVE NEW ORDERS FOR BUMEX GTT. WILL PASS ON IN REPORT FOR NOC NURSE TO START DRIP PHARMACY HAS TO MAKE THAT DRIP AND BRING IT TO THE FLOOR.
--- NOTE | 2016-12-06 19:55 | NUR ---
PT RECEIVED SITTING UP IN CHAIR AAOX3. ASSESSMENT COMPLETED PER FLOW SHEET AT THIS TIME. PT DENIES NEEDS. BED LOW. PHONE AND CALL LIGHT IN REACH. SRX2.
--- NOTE | 2016-12-06 21:27 | NUR ---
PM MEDS GIVEN AT THIS TIME. PT DENIES NEEDS. BED LOW. PHONE AND CALL LIGHT IN REACH. SRX2.
--- NOTE | 2016-12-06 22:05 | NUR ---
PT IV BLEEDING FROM SITE. PT REQUESTS TO BE RESITED. REMOVED S/L. CATHETER TIP INTACT.
[2016-12-06 22:09] VITALS: BP 137/54
--- NOTE | 2016-12-07 00:19 | NUR ---
PT RESTING QUIETLY AT THIS TIME WITH EYES CLOSED. RESPIRATIONS EVEN, NON-LABORED. NO ACUTE DISTRESS NOTED AT THIS TIME. BED LOW. PHONE AND CALL LIGHT IN REACH. SRX2.
[2016-12-07 00:45] VITALS: BP 103/46
--- NOTE | 2016-12-07 02:16 | NUR ---
PT LYING IN BED RESTING QUIETLY WITH EYES CLOSED. RESPIRATIONS EVEN, NON-LABORED. NO ACUTE DISTRESS NOTED AT THIS TIME. BED LOW. PHONE AND CALL LIGHT IN REACH. SRX2.
[2016-12-07 05:13] VITALS: BP 91/46
--- NOTE | 2016-12-07 05:37 | NUR ---
PROTONIX PO GIVEN AT THIS TIME. PT DENIES OTHER NEEDS. BED LOW. PHONE AND CALL LIGHT IN REACH. SRX2.
[2016-12-07 06:01] LABS: BASOPHILS 0.1 % (0-2); EOSINOPHILS 11.6 % (0-7); HEMATOCRIT 31.9 % (42.0-54.0); HEMOGLOBIN 10.2 g/dL (13.5-17.5); IMMATURE GRANULOCYTES 0.3 % (0-5); LYMPHOCYTES 34.5 % (15-50); MCH 30.7 pg (26.0-34.0); MCV 96.1 fL (80.0-100.0); MONOCYTES 11.4 % (2-11); NEUTROPHILS 42.1 % (40-80); PLATELET COUNT 100 10x3/uL (130-400); RBC 3.32 10x6/uL (4.20-6.10); RDW 15.7 % (11.5-14.5)
[2016-12-07 06:36] LABS: ALBUMIN 3.2 g/dL (3.4-5.0); ALKALINE PHOSPHATASE 59 U/L (46-116); ALT (SGPT) 22 U/L (10-68); BILIRUBIN - TOTAL 0.75 mg/dL (0.2-1.3); CALC OSMOLALITY 284 mosm/kg (275-300); CALCIUM 8.8 mg/dL (8.5-10.1); CARBON DIOXIDE 34.6 mmol/L (21.0-32.0); CHLORIDE - SERUM 101 mmol/L (98-107); CREATININE - SERUM 0.9 mg/dL (0.6-1.3); GLUCOSE 103 mg/dL (74-106); POTASSIUM - SERUM 4.1 mmol/L (3.5-5.1); PROTEIN - SERUM 5.7 g/dL (6.4-8.2); SODIUM 141 mmol/L (136-145); UREA NITROGEN 25 mg/dL (7-18); eGFR NON AFRICAN AMERICAN 86 mL/min (90-120)
[2016-12-07 08:19] VITALS: BP 123/57
[2016-12-07 12:18] VITALS: BP 103/44
--- NOTE | 2016-12-07 12:43 | NUR ---
STAND UP SCALE WEIGHT TAKEN ORDERED. PT CURRENTLY 193 POUNDS WHILE WEARING HIS GOWN AND TELEMETRY MONITER.
[2016-12-07 15:47] VITALS: BP 118/52
--- NOTE | 2016-12-07 19:25 | NUR ---
RECEIVED REPORT, PT VISITING WITH FAMILY, DENIES ANY NEEDS AT THIS TIME,BED IS LOW, SRX2, CALL LIGHT IN REACH, WILL CONTINUE PLAN OF CARE
[2016-12-07 22:32] VITALS: BP 133/52
[2016-12-08 00:42] VITALS: BP 127/49
--- NOTE | 2016-12-08 04:50 | NUR ---
ASSESSMENT COMPLETE, SEE FLOWSHEET, PT SLEEPING ON R.SIDE, BED ALARM ON, SCD ON, CALL LIGHT IN REACH, WILL CONTINUE TO MONITOR
[2016-12-08 06:10] VITALS: BP 123/67
--- NOTE | 2016-12-08 06:15 | NUR ---
PT WEIGHT 188.6 STANDING
[2016-12-08 06:36] LABS: BASOPHILS 0.2 % (0-2); EOSINOPHILS 10.2 % (0-7); HEMATOCRIT 34.4 % (42.0-54.0); IMMATURE GRANULOCYTES 0.2 % (0-5); LYMPHOCYTES 35.9 % (15-50); MCH 30.6 pg (26.0-34.0); MCV 95.8 fL (80.0-100.0); MEAN PLATELET VOLUME 10.9 fL (7.4-10.4); MONOCYTES 10.7 % (2-11); NEUTROPHILS 42.8 % (40-80); PLATELET COUNT 113 10x3/uL (130-400); RBC 3.59 10x6/uL (4.20-6.10); RDW 15.5 % (11.5-14.5); WBC 8.5 10x3/uL (4.8-10.8)
[2016-12-08 06:45] LABS: CALC OSMOLALITY 282 mosm/kg (275-300); CALCIUM 8.8 mg/dL (8.5-10.1); CARBON DIOXIDE 37.8 mmol/L (21.0-32.0); CHLORIDE - SERUM 96 mmol/L (98-107); GLUCOSE 122 mg/dL (74-106); POTASSIUM - SERUM 4.1 mmol/L (3.5-5.1); SODIUM 139 mmol/L (136-145); UREA NITROGEN 25 mg/dL (7-18); eGFR NON AFRICAN AMERICAN 76 mL/min (90-120)
--- NOTE | 2016-12-08 07:51 | NUR ---
AM ROUNDS - PT ASLEEP. SIDE RAILS UP X2, CALL LIGHT IN REACH, BED IN LOWEST POSITION. BUMEX DRIP AT 2.5. O2 ON PT AT 3L VIA NC. WILL CONTINUE TO MONITOR.
[2016-12-08 08:00] VITALS: BP 141/62
--- NOTE | 2016-12-08 11:05 | NUR ---
PT UP TO CHAIR. BARRIER CREAM APPLIED TO LOWER EXTEMITIES BILAT. PT DENIES OTHER NEEDS AT THIS TIME. WILL CONTINUE TO MONITOR.
[2016-12-08 11:55] VITALS: BP 137/59
[2016-12-08 15:49] VITALS: BP 120/50
[2016-12-08] MEDS ORDERED: BUMEX 1 MG TAB1 MG PO (15:51)
--- NOTE | 2016-12-08 16:01 | NUR ---
PT RESTING QUIETLY, D/C INSTRUCTIONS PROVIDED. PT AND FAMILY VERBALIZED UNDERSTANDING. IV BUMEX DRIP DISCONTINUED, IV REMOVED WITH CATHETER INTACT. ROAD MARKER REMOVED AND RETURNED TO STRAPPER OPERATOR. PT GETTING DRESSED AND WILL CALL WHEN READY TO LEAVE FACILITY. WILL CALL FOR TRANSPORT HOME. DENIES FURTHER NEEDS.
--- NOTE | 2016-12-08 16:11 | NUR ---
WALK TEST COMPLETED, PATIENT DOES NOT MEET CRITERIA FOR HOME OXYGEN. HAS REQUESTED ORDER FOR OVER NIGHT OXYGEN STUDY. DR GOLDMAN IN AGREEMENT. WILL OBTAIN ORDER.
--- NOTE | 2016-12-08 16:53 | NUR ---
PER FAMILY REQUEST, ORDER OBTAINED AND ARRANGEMENTS MADE WITH [facility] FOR OVERNIGHT PULSE OX. INFORMATION REQUIRED FAXED. THEY WILL NOTIFY PATIENT OF DATE AND TIME OF STUDY.
== END 2016-12-08 17:33 | disposition home or self-care (01) | DRG 291 ==
LOC: D.ER 01:53 → D.M2 03:40
PROVIDERS: Family Medicine; ADMIT Family Medicine
DX: I13.0 Hypertensive heart and chronic kidney disease with heart failure and stage 1 through stage 4 chronic kidney disease, or unspecified chronic kidney disease (principal); I50.33 Acute on chronic diastolic (congestive) heart failure; I70.223 Atherosclerosis of native arteries of extremities with rest pain, bilateral legs; I25.10 Atherosclerotic heart disease of native coronary artery without angina pectoris; I95.9 Hypotension, unspecified; E78.5 Hyperlipidemia, unspecified; N18.2 Chronic kidney disease, stage 2 (mild); D63.8 Anemia in other chronic diseases classified elsewhere; Z95.0 Presence of cardiac pacemaker; Z95.5 Presence of coronary angioplasty implant and graft; Z95.1 Presence of aortocoronary bypass graft

== ENCOUNTER → 2016-12-23 16:06 | Outpatient (CLI) | payer MEDICARE ==
[2016-12-02 14:14] VITALS: BMI 31.3
[~2016-12-23 16:06] MED LIST changes: +BUMEX 1 MG TAB1 MG IV; +BUMEX 1 MG TAB1 MG PO; +CETIRIZINE HCL5 M1 PO; +K-DUR20 MEQ PO; +NORVASC10 MG PO; +ROBAXIN500 MG PO
[2016-12-23 16:35] LABS: ALBUMIN 3.9 g/dL (3.4-5.0); ANION GAP 15.9 mmol/L (8-16); BILIRUBIN - TOTAL 0.95 mg/dL (0.2-1.3); CALCIUM 9.1 mg/dL (8.5-10.1); CARBON DIOXIDE 27.5 mmol/L (21.0-32.0); CREATININE - SERUM 1.6 mg/dL (0.6-1.3); POTASSIUM - SERUM 4.4 mmol/L (3.5-5.1); PROTEIN - SERUM 6.6 g/dL (6.4-8.2)
== END | disposition home or self-care (01) ==
LOC: D.LABREF 16:06
PROVIDERS: Family Medicine
DX: I50.9 Heart failure, unspecified (principal)

== ENCOUNTER → 2016-12-29 13:36 | Outpatient (CLI) | payer MEDICARE ==
[2016-12-02 14:14] VITALS: BMI 31.3
[2016-12-29 14:45] LABS: CREATININE - SERUM 1.4 mg/dL (0.6-1.3)
== END | disposition home or self-care (01) ==
LOC: D.CT 13:36
PROVIDERS: Thoracic Surgery (Cardiothoracic Vascular Surgery)
DX: I73.9 Peripheral vascular disease, unspecified (principal)

== ENCOUNTER 2017-08-07 09:52 | Inpatient (IN) | payer MEDICARE ==
[2016-12-02 14:14] VITALS: BMI 31.3
--- NOTE | ~2017-08-07 | EC ---
PATIENT:PEARL BLOUNT DATE OF SERVICE: 08/07/17 SEX: M MEDICAL RECORD: [id number] DATE OF : 37 LOCATION:D.M2 D.210 AGE OF PATIENT: 81 ADMISSION DATE: 08/07/17 REFERRING PHYSICIAN: INTERPRETING PHYSICIAN: FRANCISCA SEVILLA MD ECHOCARDIOGRAM REPORT ECHO CHARGES 4 ECHO COMPLETE CLINICAL DIAGNOSIS: DYSPNEA HX OF CAD/CABG/HTN STENTS/PACEMAKER ECHOCARDIOGRAPHIC MEASUREMENTS (adult normal given) AC root (d.<3.7cm) 3.8 cm LV Septum d (<1.2 cm> 1.4 cm Valve Excursion 2.1 cm LV Septum (systole) 1.7 cm Left Atria (s.<4.0cm> 4.6 cm LVPW d(<1.2cm) 1.6 cm RV (d.<2.3cm) 4.3 cm LVPW (sytole) 1.8 cm LV diastole(<5.6CM) 5.0 cm MV E-F(>70mm/sec) cm LV systole 3.3 cm LVOT Diameter 1.5 cm MV exc.(>10mm) 1.1 cm Est.ejection fraction (50-75%) % Pericardial Effusion N DOPPLER: LVIT cm/sec A 170 cm/sec E 159 cm/sec LA cm/sec RVSP 39 mmHg LVOT 130 cm/sec AOP1/2T m/s Asc. Ao 231 cm/sec RVOT 39 cm/sec RA cm/sec PA cm/sec AV Gradient Peak 21.36mmHg AV Mean 12.42mmHg AV Area 1.0 cm MV Gradient Peak 16.19mmHg MV Mean 5.13 mmHg MV Area cm COMMENTS: Psychiatric Arnp: Abhishek NAZARIO Garnetter: 1 Dr. [place] TAPE# PACS DATE OF SERVICE: 08/08/2017 PROCEDURE: Echocardiogram. FINDINGS: 1. Left ventricular chamber size is within normal limits. Left ventricular systolic function is normal. Overall ejection fraction estimated at 60%. 2. Left atrium is enlarged at 4.9 cm. Right atrium and right ventricular chamber sizes are as well moderately dilated. 3. Valvular structures: Aortic valve demonstrates mild calcific aortic ECHOCARDIOGRAM REPORT [id number] PEARL BLOUNT stenosis. Valve area calculates to 1.0 cm-squared. There is a gradient of 21 mm across the valve. The remaining valvular structures have normal structure and motion. 4. Doppler interrogation elsewise reveals mild mitral regurgitation, mild to moderate tricuspid regurgitation, no other valvular insufficiency or stenosis. Pulmonary systolic pressure is normal estimated 39 mmHg. 5. No evidence of pericardial effusion or left ventricular thrombus. TRANSINT:[id number] Voice Confirmation ID: [id number] DOCUMENT ID: [id number] FRANCISCA SEVILLA MD at 1800 CC: [id number] DICTATION DATE: 08/09/17 1125 BALLASTER: 08/09/17 1253 DIS IN 08/09/17 [id number] [place] [address]
[2017-08-07 11:00] LABS: ALBUMIN 3.1 g/dL (3.4-5.0); ALKALINE PHOSPHATASE 79 U/L (46-116); ALT (SGPT) 27 U/L (10-68); BILIRUBIN - TOTAL 0.79 mg/dL (0.2-1.3); CALC OSMOLALITY 282 mosm/kg (275-300); CALCIUM 8.5 mg/dL (8.5-10.1); CARBON DIOXIDE 25.2 mmol/L (21.0-32.0); CHLORIDE - SERUM 97 mmol/L (98-107); CREATININE - SERUM 2.2 mg/dL (0.6-1.3); GLUCOSE 146 mg/dL (74-106); POTASSIUM - SERUM 5.3 mmol/L (3.5-5.1); PROTEIN - SERUM 5.6 g/dL (6.4-8.2); SODIUM 131 mmol/L (136-145); UREA NITROGEN 60 mg/dL (7-18); eGFR NON AFRICAN AMERICAN 31 mL/min (90-120)
[2017-08-07 11:07] LABS: CREATINE KINASE 31 UL (21-232); HEMATOCRIT 37.5 % (42.0-54.0); HEMOGLOBIN 12.4 g/dL (13.5-17.5); MAGNESIUM - SERUM 2.3 mg/dL (1.8-2.4); MCH 32.2 pg (26.0-34.0); MCHC 33.1 g/dL (31.0-37.0); MCV 97.4 fL (80.0-100.0); PRO BNP 9354 pg/mL (0-450); RBC 3.85 10x6/uL (4.20-6.10); RDW 15.7 % (11.5-14.5); WBC 9.2 10x3/uL (4.8-10.8)
[2017-08-07 11:08] LABS: PLATELET COUNT 72 10x3/uL (130-400)
[2017-08-07 11:15] LABS: TROPONIN-I < 0.017 ng/mL (0.000-0.060)
[2017-08-07 11:26] LABS: EOSINOPHILS 1 % (0-7); LYMPHOCYTES 47 % (15-50); MONOCYTES 15 % (2-11); NEUTROPHILS 37 % (40-80); PLATELET ESTIMATE DECREASED
[2017-08-07 11:33] LABS: APPEARANCE CLEAR (CLEAR); BACTERIA FEW /hpf (NONE SEEN); BILIRUBIN NEGATIVE (NEGATIVE); COLOR YELLOW (YELLOW); EPITHELIAL CELLS OCC /hpf (0-5); GLUCOSE NEGATIVE (NEGATIVE); HYALINE CAST 0-5 /lpf (NONE SEEN); KETONE NEGATIVE (NEGATIVE); MUCUS <1+ /lpf (NONE SEEN); NITRITE NEGATIVE (NEGATIVE); PROTEIN NEGATIVE (NEGATIVE); RED CELLS - URINE 0-5 /hpf (0-5); SPECIFIC GRAVITY 1.015 (1.005-1.020); UROBILINOGEN NORMAL (NORMAL); WHITE CELLS - URINE RARE /hpf (0-5)
[2017-08-08 08:49] LABS: BASOPHILS 0.1 % (0-2); EOSINOPHILS 3.1 % (0-7); HEMATOCRIT 32.5 % (42.0-54.0); HEMOGLOBIN 10.9 g/dL (13.5-17.5); IMMATURE GRANULOCYTES 0.3 % (0-5); LYMPHOCYTES 57.2 % (15-50); MCH 31.5 pg (26.0-34.0); MCHC 33.5 g/dL (31.0-37.0); MEAN PLATELET VOLUME 10.7 fL (7.4-10.4); MONOCYTES 12.9 % (2-11); NEUTROPHILS 26.4 % (40-80); PLATELET COUNT 64 10x3/uL (130-400); RBC 3.46 10x6/uL (4.20-6.10); RDW 15.5 % (11.5-14.5)
[2017-08-08 08:50] LABS: MCV 93.9 fL (80.0-100.0); WBC 6.8 10x3/uL (4.8-10.8)
[2017-08-08 09:00] LABS: ALBUMIN 2.6 g/dL (3.4-5.0); ANION GAP 11.5 mmol/L (8-16); BILIRUBIN - TOTAL 0.64 mg/dL (0.2-1.3); CALCIUM 7.9 mg/dL (8.5-10.1); CARBON DIOXIDE 26.8 mmol/L (21.0-32.0); CREATININE - SERUM 1.5 mg/dL (0.6-1.3); MAGNESIUM - SERUM 1.9 mg/dL (1.8-2.4); POTASSIUM - SERUM 4.3 mmol/L (3.5-5.1); PROTEIN - SERUM 5.2 g/dL (6.4-8.2)
[2017-08-09] VITALS: BP 120/54
[2017-08-09 04:00] VITALS: BP 132/66
[2017-08-09 05:47] LABS: BASOPHILS 0.2 % (0-2); EOSINOPHILS 3.9 % (0-7); IMMATURE GRANULOCYTES 0.2 % (0-5); LYMPHOCYTES 57.8 % (15-50); MCH 31.8 pg (26.0-34.0); MCHC 34.4 g/dL (31.0-37.0); MCV 92.5 fL (80.0-100.0); MEAN PLATELET VOLUME 10.8 fL (7.4-10.4); MONOCYTES 16.5 % (2-11); NEUTROPHILS 21.4 % (40-80); PLATELET COUNT 75 10x3/uL (130-400); RBC 3.46 10x6/uL (4.20-6.10); RDW 15.4 % (11.5-14.5); WBC 8.5 10x3/uL (4.8-10.8)
[2017-08-09 06:07] LABS: ALBUMIN 2.6 g/dL (3.4-5.0); ANION GAP 14.3 mmol/L (8-16); BILIRUBIN - TOTAL 0.64 mg/dL (0.2-1.3); CALCIUM 7.7 mg/dL (8.5-10.1); CARBON DIOXIDE 23.1 mmol/L (21.0-32.0); CREATININE - SERUM 1.6 mg/dL (0.6-1.3); POTASSIUM - SERUM 4.4 mmol/L (3.5-5.1); PROTEIN - SERUM 5.2 g/dL (6.4-8.2)
[2017-08-09 08:30] VITALS: BP 99/54
[2017-08-09 12:16] VITALS: BP 116/61
[2017-08-09] MEDS ORDERED: VALTREX500 MG PO (16:03)
[2017-08-09 16:57] VITALS: BP 131/63
== END 2017-08-09 18:29 | disposition home or self-care (01) | DRG 595 ==
LOC: D.ER 09:52 → D.SDCHOLD 16:09 → D.M2 16:09
PROVIDERS: Family Medicine
DX: B02.9 Zoster without complications (principal); I50.41 Acute combined systolic (congestive) and diastolic (congestive) heart failure; N17.9 Acute kidney failure, unspecified; I13.0 Hypertensive heart and chronic kidney disease with heart failure and stage 1 through stage 4 chronic kidney disease, or unspecified chronic kidney disease; E87.1 Hypo-osmolality and hyponatremia; I95.9 Hypotension, unspecified; E78.5 Hyperlipidemia, unspecified; F32.9 Major depressive disorder, single episode, unspecified; I25.10 Atherosclerotic heart disease of native coronary artery without angina pectoris; Z95.5 Presence of coronary angioplasty implant and graft; Z95.1 Presence of aortocoronary bypass graft; D63.8 Anemia in other chronic diseases classified elsewhere; Z95.0 Presence of cardiac pacemaker; N18.3 Chronic kidney disease, stage 3 (moderate); E86.0 Dehydration; I35.0 Nonrheumatic aortic (valve) stenosis

== ENCOUNTER → 2017-09-11 12:55 | Outpatient (CLI) | payer MEDICARE ==
[2016-12-02 14:14] VITALS: BMI 31.3
[~2017-09-11 12:55] MED LIST changes: +VALTREX500 MG PO
== END | disposition home or self-care (01) ==
LOC: D.CT 12:55
DX: M54.2 Cervicalgia (principal)

== ENCOUNTER 2017-11-15 10:54 | Outpatient (CLI) | payer MEDICARE ==
[~2017-11-15] VITALS: Ht 170.2 cm; Wt 77.7 kg
[2017-11-15 16:21] VITALS: BP 99/42; Ht 170.2 cm; Wt 77.7 kg
== END 2017-11-15 18:14 | disposition home or self-care (01) ==
LOC: D.OPS 10:54
DX: D64.9 Anemia, unspecified (principal)

== ENCOUNTER 2017-11-20 23:08 | Emergency (ER) | payer MEDICARE ==
[2017-11-15 16:21] VITALS: BMI 26.8
[2017-11-21 00:37] LABS: BASOPHILS 0 % (0-2); EOSINOPHILS 0.8 % (0-7); HEMATOCRIT 26.2 % (42.0-54.0); IMMATURE GRANULOCYTES 0.2 % (0-5); LYMPHOCYTES 12.7 % (15-50); MCH 30.9 pg (26.0-34.0); MCHC 34.4 g/dL (31.0-37.0); MEAN PLATELET VOLUME 10.5 fL (7.4-10.4); MONOCYTES 15.5 % (2-11); NEUTROPHILS 70.8 % (40-80); PLATELET COUNT 89 10x3/uL (130-400); RBC 2.91 10x6/uL (4.20-6.10); RDW 16.8 % (11.5-14.5); WBC 4.9 10x3/uL (4.8-10.8)
[2017-11-21 00:50] LABS: ANION GAP 11.2 mmol/L (8-16); BILIRUBIN - TOTAL 0.96 mg/dL (0.2-1.3); CALCIUM 8.5 mg/dL (8.5-10.1); CARBON DIOXIDE 28.9 mmol/L (21.0-32.0); CREATININE - SERUM 1.1 mg/dL (0.6-1.3); POTASSIUM - SERUM 5.1 mmol/L (3.5-5.1)
[2017-11-21 01:17] LABS: APPEARANCE CLEAR (CLEAR); BILIRUBIN NEGATIVE (NEGATIVE); COLOR YELLOW (YELLOW); GLUCOSE NEGATIVE (NEGATIVE); KETONE NEGATIVE (NEGATIVE); NITRITE NEGATIVE (NEGATIVE); PROTEIN NEGATIVE (NEGATIVE); SPECIFIC GRAVITY 1.015 (1.005-1.020); UROBILINOGEN NORMAL (NORMAL)
[2017-11-21 01:19] LABS: WHITE CELLS - URINE 0-5 /hpf (0-5)
[2017-11-21 01:19] LABS: PLATELET ESTIMATE DECREASED
[2017-11-21 01:20] LABS: BACTERIA FEW /hpf (NONE SEEN); EPITHELIAL CELLS 0-5 /hpf (0-5); RED CELLS - URINE NONE SEEN /hpf (0-5)
== END 2017-11-21 01:55 | disposition home or self-care (01) ==
LOC: D.ER 23:08
PROVIDERS: Emergency Medicine
DX: B34.9 Viral infection, unspecified (principal); D64.9 Anemia, unspecified; R53.1 Weakness; I50.9 Heart failure, unspecified

== ENCOUNTER 2017-11-22 09:01 | Outpatient (CLI) | payer MEDICARE ==
[~2017-11-22] VITALS: Ht 170.2 cm; Wt 78.6 kg
[2017-11-22 10:13] VITALS: BP 94/44; Ht 170.2 cm; Wt 78.6 kg
== END 2017-11-22 15:25 | disposition home or self-care (01) ==
LOC: D.OPS 09:01
DX: C91.10 Chronic lymphocytic leukemia of B-cell type not having achieved remission (principal)